=== PATIENT | female | born 1985 | race Caucasian/White ===

== ENCOUNTER 2017-07-09 09:07 | Emergency (ER) | payer BC, OTHER ==
[~2017-07-09] VITALS: Ht 157.5 cm; Wt 72.6 kg
--- OUTSIDE RECORDS SUMMARY | 2017-07-09 09:13 | XMS REPORT ---
Author Author JAKE WHITAKER Organization [facility] Address [address] [place] [address] Care Team Providers Care Field Care Advocate Name Role Phone JAKE WHITAKER Unavailable PROBLEMS Type Condition ICD9-CM Code [id number] Code Onset Dates Condition Status SNOMED Code Problem Psoriasis L40.9 Active 1245790 Problem Migraine headache G43.909 Active 07357244 ALLERGIES Substance Reaction Event Type Date Status N.K.D.A. Unknown Non Drug Allergy Jan, Unknown SOCIAL HISTORY No smoking Hx information available PLAN OF CARE Activity Details Follow Up prn Reason: VITAL SIGNS Height 62 in 2016-01-28 Weight 164.8 lbs 2016-01-28 Temperature 98.8 degrees Fahrenheit 2016-01-28 Heart Rate 110 bpm 2016-01-28 Respiratory Rate 18 2016-01-28 BMI 30.14 kg/m2 2016-01-28 Blood pressure systolic 128 mmHg 2016-01-28 Blood pressure diastolic 82 mmHg 2016-01-28 MEDICATIONS Medication Instructions Dosage Frequency Start Date End Date Duration Status Bactrim DS 800-160 MG Orally Twice a day 1 tablet 12h Jan,Jan 5 days Active Topamax 50 MG Orally Twice a day 1 tablet 12h Feb, 30 days Active RESULTS Name Result Date Reference Range UA LONG DIP (IN HOUSE) 2016-01-28 Lot # [id number] Exp date 06/2016 Clarity slightly cloudy Color yellow Odor no GLU negative MYLES negative KET negative SG 1.025 BLO 1+ pH 6.5 Protein 1+ URO 1.0 NIT negative VIOLETTA 1+ Lot # [id number] Exp date 03/2017 CULTURE, URINE 2016-01-28 Urine Culture, Routine Final report Result 1 Escherichia coli Antimicrobial Susceptibility PROCEDURES Procedure Date Ordered Related Diagnosis Body Site URINALYSIS, AUTO, W/O SCOPE Jan 28, 2016 URINE CULTURE/COLONY COUNT Jan 28, 2016 Office Visit, Est Pt., Level 3 Jan 28, 2016 IMMUNIZATIONS No Known Immunizations
--- OUTSIDE RECORDS SUMMARY | 2017-07-09 09:13 | XMS REPORT ---
Author Author IZABELLA PEPE [facility] eClinicalWorks Address Unknown Phone Unavailable Care Team Providers Care Video Editing Intern Name Role Phone IZABELLA PEPE Unavailable Allergies No Known Allergies Problems Problem Type Condition Code Onset Dates Condition Status Problem Acute upper respiratory infections of unspecified site 465.9 Active Problem Other diseases of nasal cavity and sinuses 478.19 Active Problem Migraine headache G43.909 Active Assessment Migraine headache G43.909 Active Medications Medication Code System Code Instructions Start Date End Date Status Dosage Topamax [facility] [address]-08 50 MG Orally Twice a day Feb 09, 2015 1 tablet Results No Known Results Summary Purpose eClinicalWorks Submission
--- OUTSIDE RECORDS SUMMARY | 2017-07-09 09:13 | XMS REPORT ---
Author Author IZABELLA PEPE [facility] eClinicalWorks Address Unknown Phone Unavailable Care Team Providers Care Ramp Service Man Name Role Phone IZABELLA PEPE CP Unavailable Allergies, Adverse Reactions, Alerts Substance Reaction Event Type N.K.D.A. Info Not Available Non Drug Allergy Problems Problem Type Condition Code Onset Dates Condition Status Problem Other diseases of nasal cavity and sinuses 478.19 Active Assessment Frequent headaches R51 Active Problem Acute upper respiratory infections of unspecified site 465.9 Active Medications Medication Code System Code Instructions Start Date End Date Status Dosage Topamax [facility] [address]-09 25 MG Orally Twice a day Feb 09, 2015 1/2 tab daily x 2 days, then 1 tab daily x 5, 1 tab bid x 7 days, 2 tabs in am, 1 tab at hs x 7 days, then bid Ibuprofen [facility] [address]-74 800 MG Orally Three times a day prn 1 tablet Procedures Procedure Coding System Code Date Office Visit, Est Pt., Level 3 CPT-4 78973 Feb 09, 2015 Vital Signs Date/Time: Feb 09, 2015 Temperature 98.0 F Weight 165.4 lbs Height 62 in BMI 30.25 Index Blood Pressure Diastolic 72 mmHg Blood Pressure Systolic 116 mmHg Cardiac Monitoring Heart Rate 76 bpm Results No Known Results Summary Purpose eClinicalWorks Submission
--- OUTSIDE RECORDS SUMMARY | 2017-07-09 09:13 | XMS REPORT ---
Author JASS Sharma [facility] eClinicalWorks Address Unknown Phone Unavailable Care Team Providers Care Clinical Education Coordinator Name Role Phone JASS CANTRELL CP Unavailable Allergies No Known Allergies Problems Problem Type Condition Code Onset Dates Condition Status Problem Other diseases of nasal cavity and sinuses 478.19 Active Problem Acute upper respiratory infections of unspecified site 465.9 Active Medications No Known Medications Results No Known Results Summary Purpose eClinicalWorks Submission
--- OUTSIDE RECORDS SUMMARY | 2017-07-09 09:13 | XMS REPORT ---
Author JASS Sharma [facility] eClinicalWorks Address Unknown Phone Unavailable Care Team Providers Care Block Feeder Name Role Phone JASS CANTRELL CP Unavailable Allergies, Adverse Reactions, Alerts Substance Reaction Event Type N.K.D.A. Info Not Available Non Drug Allergy Problems Problem Type Condition ICD-9 Code Onset Dates Condition Status Problem Other diseases of nasal cavity and sinuses 478.19 Active Assessment Low grade squamous intraepithelial lesion (LGSIL) on cervical Pap smear 795.03 Active Problem Acute upper respiratory infections of unspecified site 465.9 Active Medications No Known Medications Procedures Procedure Coding System Code Date URINE TEST CPT-4 32139 Jan 19, 2015 BIOPSY OF CERVIX W/SCOPE CPT-4 33102 Jan 19, 2015 Vital Signs Date/Time: Jan 19, 2015 Temperature 99.1 F Weight 166.4 lbs Height 62 in BMI 30.43 Index Blood Pressure Diastolic 70 mmHg Blood Pressure Systolic 122 mmHg Cardiac Monitoring Heart Rate 84 bpm Results Name Result Date Reference Range Unit Abnormality Flag COLP W/ BX OF CERVIX Summary Purpose eClinicalWorks Submission
--- OUTSIDE RECORDS SUMMARY | 2017-07-09 09:13 | XMS REPORT ---
Author Author IZABELLA PEPE [facility] eClinicalWorks Address Unknown Phone Unavailable Care Team Providers Care Counter Pocket Trimmer Name Role Phone IZABELLA PEPE CP Unavailable [...] Start Date End Date Status Dosage Topamax [facility] [address]-63 25 MG Orally Twice a day Feb 09, 2015 1 tablet Procedures Procedure Coding System Code Date Office Visit, Est Pt., Level 3 CPT-4 37815 Mar 16, 2015 Vital Signs Date/Time: Mar 16, 2015 Temperature 97.9 F Weight 162.6 lbs Height 62 in BMI 29.74 Index Blood Pressure Diastolic 60 mmHg Blood Pressure Systolic 102 mmHg Cardiac Monitoring Heart Rate 76 bpm Results No Known Results Summary Purpose eClinicalWorks Submission
--- OUTSIDE RECORDS SUMMARY | 2017-07-09 09:13 | XMS REPORT | Continuity of Care Document ---
Author Author [facility] Address Unknown Phone Unavailable Allergies There is no data. Medications There is no data. Problems Date Dx Coded Attending Type Code Diagnosis Diagnosed By 06/18/2013 FRANSISCA PERALTA APRN 465.9 ACUTE UPPER RESPIRATORY INFECTIONS OF UNSPECIFIED SITE 06/18/2013 FRANSISCA PERALTA APRN 478.19 OTHER DISEASES OF NASAL CAVITY AND SINUSES Procedures There is no data. Results There is no data. Encounters ACCT No. Visit Date/Time Discharge Status Pt. Type Provider Facility Loc./Unit Complaint [id number] 06/18/2013 09:19:00 06/18/2013 23:59:59 CLS Outpatient FRANSISCA PERALTA APRN
--- OUTSIDE RECORDS SUMMARY | 2017-07-09 09:13 | XMS REPORT ---
Author Author SVETLANA CURIEL Organization eClinicalWorks Address Unknown Phone Unavailable Care Team Providers Care Brake Drum Molder Name Role Phone SVETLANA CURIEL CP Unavailable Allergies, Adverse Reactions, Alerts Substance Reaction Event Type N.K.D.A. Info Not Available Non Drug Allergy Problems Problem Type Condition ICD-9 Code Onset Dates Condition Status Problem Other diseases of nasal cavity and sinuses 478.19 Active Assessment Encounter for insertion of intrauterine contraceptive device V25.11 Active Problem Acute upper respiratory infections of unspecified site 465.9 Active Medications No Known Medications Procedures Procedure Coding System Code Date LEVONORGESTREL INTRAUTERN CNTRACPT CPT-4 J7302 Dec 29, 2014 URINE TEST CPT-4 93095 Dec 29, 2014 INSERT INTRAUTERINE DEVICE CPT-4 57828 Dec 29, 2014 Vital Signs Date/Time: Dec 29, 2014 Temperature 98.6 F Weight 162.4 lbs Height 62 in BMI 29.70 Index Blood Pressure Diastolic 80 mmHg Blood Pressure Systolic 116 mmHg Cardiac Monitoring Heart Rate 76 bpm Results Name Result Date Reference Range Unit Abnormality Flag TEST, URINE (IN HOUSE) Summary Purpose eClinicalWorks Submission
--- OUTSIDE RECORDS SUMMARY | 2017-07-09 09:13 | XMS REPORT ---
Author Author MICHELLE CHRIS [facility] Address [address] [place] [address] Care Team Providers Care Monumental Stonemason Name Role Phone MICHELLE CHRIS Unavailable PROBLEMS Type Condition ICD9-CM Code LMB75-GF Code Onset Dates Condition Status SNOMED Code Problem Psoriasis L40.9 Active 9843274 Problem Migraine headache G43.909 Active 55314780 ALLERGIES Substance Reaction Event Type Date Status N.K.D.A. Unknown Non Drug Allergy May, Unknown SOCIAL HISTORY No smoking Hx information available PLAN OF CARE Activity Details Follow Up 3 Months Reason: VITAL SIGNS Height 62 in 2016-05-16 Weight 176.8 lbs 2016-05-16 Temperature 98.6 degrees Fahrenheit 2016-05-16 Heart Rate 80 bpm 2016-05-16 Respiratory Rate 20 2016-05-16 BMI 32.33 kg/m2 2016-05-16 Blood pressure systolic 124 mmHg 2016-05-16 Blood pressure diastolic 72 mmHg 2016-05-16 MEDICATIONS Medication Instructions Dosage Frequency Start Date End Date Duration Status Triamcinolone Acetonide 0.1 % Externally Twice a day 1 application to affected area 12h May, Active Imitrex 100 MG Orally May repeat in 1 hr. Limit 2/day 1 tablet as needed May, Active RESULTS No Results PROCEDURES Procedure Date Ordered Related Diagnosis Body Site Office Visit, Est Pt., Level 3 May 16, 2016 IMMUNIZATIONS No Known Immunizations
[2017-07-09] MEDS ORDERED: SUMA100T3 (09:52)
--- NOTE | 2017-07-09 10:48 | ED Neck-Back Pain/Injury ---
General Chief Complaint: Head/Cervical Problems Stated Complaint: R SIDE BACK AND ARM PAIN Nursing Triage Note: AMB TO ROOM REPORTS WOKE UP YESTERDAY AM C/O NECK PAIN. REPORTS THROUGHT OUT DAY PAIN HAS GONE DOWN R ARM TO HAND REPORTS A BURNING TINGLING FEELING DOWN ARM Nursing Sepsis Screen: No Definite Risk Source of Information: Patient Exam Limitations: No Limitations History of Present Illness Date Seen by Provider: Jul 09, 2017 Time Seen by Provider: 10:49 Initial Comments This 32-year-old white female presents with right trapezius spasm after she awoke from sleep yesterday. The patient's pain has increased and now radiates down her right arm. Patient is having some slight numbness in her right thumb. Patient denies remote or recent trauma to the area. Patient has had no associated headache, neck pain, or photophobia. Allergies and Home Medications Allergies Coded Allergies: No Known Drug Allergies (Unverified , 07/09/17) Patient Home Medication List Home Medication List Reviewed: Yes Constitutional: no symptoms reported EENTM: no symptoms reported Respiratory: no symptoms reported Cardiovascular: no symptoms reported Gastrointestinal: no symptoms reported Genitourinary: no symptoms reported Musculoskeletal: see HPI, neck pain Skin: no symptoms reported Psychiatric/Neurological: No Symptoms Reported Past Oqugyzb-Ophulr-Pudpsd Hx Patient Social History Alcohol Use: Denies Use Recreational Drug Use: No Smoking Status: Never a Smoker Recent Foreign Travel: No Contact w/Someone Who Travel: No Recent Infectious Disease Expo: No Surgeries History of Surgeries: No Respiratory History of Respiratory Disorde: No Cardiovascular History of Cardiac Disorders: No Neurological History of Neurological Disord: Yes Neurological Disorders: Headaches /Migraines Musculoskeletal History of Musculoskeletal Dis: No Endocrine History of Endocrine Disorders: No HEENT History of HEENT Disorders: No Cancer History of Cancer: No Psychosocial History of Psychiatric Problem: No Integumentary History of Skin or Integumenta: No Reviewed Nursing Assessment Reviewed/Agree w Nursing PMH: Yes Physical Exam Vital Signs Vital Signs - First Documented 07/09/17 09:42 Temp 98.0 Pulse 81 Resp 18 B/P (MAP) 124/81 (95) Pulse Ox 98 O2 Delivery Room Air Capillary Refill : Less Than 3 Seconds General Appearance: No Apparent Distress, WD/WN HEENT: Normal ENT Inspection Neck: Normal Inspection, Tender Lateral (over the right trapezius.) Respiratory: No Respiratory Distress Neurologic/Psychiatric: Alert, Oriented x3 Skin: Normal Color, Warm/Dry Progress/Results/Core Measures Results/Orders Vital Signs/I&O Vital Sign - Last 12Hours 07/09/17 09:42 Temp 98.0 Pulse 81 Resp 18 B/P (MAP) 124/81 (95) Pulse Ox 98 O2 Delivery Room Air Blood Pressure Mean: 95 Progress Note : Time: 10:54 Progress Note I recommended a treatment course for the patient. She declined radiographic imaging. Prescriptions were written for patient. Departure Impression Impression: Primary Impression: Neck pain Disposition: HOME, SELF-CARE Condition: Unchanged Departure-Patient Inst. Decision time for Depature: 10:46 Referrals: [facility] (PCP/Family) Primary Care Physician RADHIKA DALE MD Patient Instructions: Cervical Muscle Strain (DC) Add. Discharge Instructions: Ibuprofen, [place], and Norflex as prescribed. Moist heat to the area for symptomatic relief. Trial of 10's Unit to right side of neck. Close follow up with Dr. Dale Monday. Come back if any problems. All discharge instructions reviewed with patient and/or family. Voiced understanding. DORA MUÑOZ MD Jul 09, 2017 10:48
[2017-07-09 10:54] VITALS: BP 124/81
== END 2017-07-09 10:54 | disposition home or self-care (01) ==
LOC: ER 09:09
DX: M54.2 Cervicalgia (principal); G43.909 Migraine, unspecified, not intractable, without status migrainosus
CPT/HCPCS: 99282

== ENCOUNTER → 2017-07-11 | Outpatient (CLI) | payer BC ==
[~2017-07-11] MED LIST: SUMA100T3
--- NOTE | 2017-07-11 16:09 | Diagnostic Imaging Report ---
INDICATION: Right upper extremity pain and paresthesia. FINDINGS: AP, lateral and odontoid views of the cervical spine reveal reversal of cervical lordosis centered at the C4-C5 level with mild narrowing of the C5-C6 disc space. Prevertebral soft tissues are unremarkable. The odontoid is intact. There is no evidence of an acute fracture. IMPRESSION: Reversal of cervical lordosis may be secondary to muscle spasm or positioning. There is localized C5-C6 degenerative disc disease without radiographic evidence of acute abnormality. Dictated by: Dictated on workstation # [id number]
== END ==
LOC: RAD 15:24
PROVIDERS: ATTEND Nurse Practitioner Family
DX: M50.322 Other cervical disc degeneration at C5-C6 level (principal)
CPT/HCPCS: 72040

== ENCOUNTER → 2019-03-11 | Outpatient (CLI) | payer BC ==
--- NOTE | 2019-03-11 13:01 | Diagnostic Imaging Report ---
INDICATION: Chronic headache. 3 views of the cervical spine were obtained. FINDINGS: There is straightening of the normal cervical lordosis. There is moderate degenerative disease at C5-C6. There is no fracture or traumatic subluxation. The odontoid is intact with lateral masses well aligned. Prevertebral soft tissues are within normal limits. IMPRESSION: Focal degenerative disease at C5-C6 otherwise unremarkable. Dictated by: Dictated on workstation # [id number]
== END ==
LOC: RAD 11:06
PROVIDERS: ATTEND Nurse Practitioner Family
DX: M47.812 Spondylosis without myelopathy or radiculopathy, cervical region (principal)
CPT/HCPCS: 72040